=== PATIENT | male | born 1995 | race Caucasian/White ===

== ENCOUNTER 2017-02-15 19:28 | Emergency (ER) | payer SELFPAY ==
[2017-02-15 19:51] VITALS: BP 137/95
--- NOTE | 2017-02-15 20:05 | ER Document Report ---
ED Medical Screen (RME) - General Stated Complaint: SOMETHING IN EYE Notes: Patient states he got something in his left eye earlier this evening. Was painful when it occurred, but thinks he may have gotten it out. Feels better but still feels a little scratchy. I have greeted and performed a rapid initial assessment of this patient. A comprehensive ED assessment and evaluation of the patient, analysis of test results and completion of the medical decision making process will be conducted by additional ED providers. - Related Data Allergies/Adverse Reactions: Cephalosporins Allergy (Verified 02/15/17 20:00) Physical Exam - Vital signs Vitals: Temp Pulse Resp BP Pulse Ox 99.4 F 74 16 137/95 H 99 02/15/17 19:50 02/15/17 19:50 02/15/17 19:50 02/15/17 19:50 02/15/17 19:50 - HEENT Conjunctiva: Injected - mild left Extraocular movements intact: Yes Pupils: PERRL Course - Vital Signs Vital signs: Temp Pulse Resp BP Pulse Ox 99.4 F 74 16 137/95 H 99 02/15/17 19:50 02/15/17 19:50 02/15/17 19:50 02/15/17 19:50 02/15/17 19:50
== END 2017-02-15 20:09 | disposition left against medical advice (07) ==
LOC: ER 19:28
DX: T15.92XA Foreign body on external eye, part unspecified, left eye, initial encounter (principal); X58.XXXA Exposure to other specified factors, initial encounter; Z88.1 Allergy status to other antibiotic agents; Z53.20 Procedure and treatment not carried out because of patient's decision for unspecified reasons
CPT/HCPCS: 99281